=== PATIENT | male | born 1940 | race Caucasian/White ===

== ENCOUNTER 2019-08-27 12:09 | Observation (INO) | payer MEDICARE, BC ==
[2019-08-27 12:58] LABS: PTT 33.1 SEC (22.9-36.1); Prothrombin Time 13.5 SEC (12.0-14.7)
--- NOTE | 2019-08-27 13:39 | PDOC.FPRHP ---
- History of Present Illness Chief Complaint: Confusion, Left sided facial droop History of Present Illness: Patient is a 78 yo male with PMHx of HTN and HLD presented to the [place] ER earlier this morning with complaint of confusion. Patient says he was drinking coffee around 630-700AM this morning and does not remember anything until he arrived at [facility]. When prompted, he does remember that he arrived here via helicopter (around 1215PM). Patient's states that around 0700AM the patient called out to her that he was confused and "didn't feel like himself ". He was also on a phone call with his oldest daughter who also told the patient's that the patient was not making sense with conversation. Patient' s decided to take him to the [place] ER. Upon presentation there he was noted to have a left facial droop and prompted CVA workup. Left facial droop subsequently resolved after about an hour. CT head & CTA head/neck were both negative for any acute pathology. Currently patient states he still feels a little confused, but is able to answer questions appropriately. Does complain of a headache, described as similar to all of his past headaches which he has frequently. Denies any pain, dizziness, lightheadedness, nausea, heartburn, indigestion, back pain, myalgia, arthralgia. Of note, patient states that he was told he had a small mass in the front of his brain about 3 years ago. Was told no intervention needed at that time but that it was the cause of his headaches. Imaging completed with this admission have so far not seen a brain mass. ED Course: CT head negative for acute pathology, shows chronic ischemic changes. CTA head & neck both negative for any acute pathology. - Allergies/Adverse Reactions Allergies Allergy/AdvReac Type Severity Reaction Status Date / Time No Known Allergies Allergy Verified 08/27/19 13:44 - Home Medications Comments: Home med list: Gabapentin, Topiramate, Losartan, ASA 81, Vitamin D & E, Meloxicam, Zantac, APAP/Codeine 300-30 Patient's also says patient taking Lovastatin. Will need dosing. - History PMHx: HTN, HLD, Peripheral Neuropathy, history of brain tumor (not seen on current CT head) PSHx: appendectomy, left carpal tunnel, multiple skin care sites on face, cataracts (Aug 2018) Social: former smoker (quit 50 years ago), EtOH use <1x/week - Review of Systems ROS unobtainable: other (given by patient and his ) General: denies: fever/chills, weight/appetite/sleep changes, fatigue Eyes: denies: vision changes ENT: denies: nasal congestion Respiratory: denies: cough, congestion, shortness of breath Cardiovascular: denies: chest pain, edema Gastrointestinal: denies: nausea, abdominal pain Skin: denies: rashes, lesions Musculoskeletal: denies: pain, tenderness, arthritis/arthralgias Neurological: denies: numbness, syncope, seizure, weakness - Vital signs BP: 160/105 HR: 69 RR: 18 Tmax: 97.9F Pox: 97% on RA Wt: 64 kg - Physical Exam Constitutional: NAD, awake, alert and oriented, well developed HEENT: normocephalic and atraumatic, PERRLA, EOMI, conjunctiva clear, no scleral icterus, grossly normal vision, grossly normal hearing, MMM Neck: supple, FROM, no JVD Heart: RRR, normal S1/S2, no murmurs/rubs/gallops, pulses present, no edema Lungs: CTAB, no respiratory distress, good air movement, no rales/rhonchi, no wheezing Abdomen: soft, non-tender, bowel sounds present, no masses/distention Musculoskeletal: normal structure, normal tone, ROM grossly normal -Musculoskeletal: strength 5/5 in all extremities Neurological: no focal deficit, CN II-XII intact, normal sensation Skin: no rash/lesions, good turgor Heme/Lymphatic: no unusual bruising or bleeding Psychiatric: normal mood and affect -Psychiatric: intact remote, impaired memory regarding time from 0700 to 1200 today FMR H&P: Results - Radiology Interpretation CT scan - head Status: report reviewed by me (no acute patholoy, chronic ischemic changes) Other Status: report reviewed by me (CTA head & neck: no signs of stenosis, no acute pathology) FMR H&P: A/P - Problem List (1) TIA (transient ischemic attack) Current Visit: Yes Status: Acute Code(s): G45.9 - TRANSIENT CEREBRAL ISCHEMIC ATTACK, UNSPECIFIED (2) Hypertension Current Visit: Yes Status: Acute Code(s): I10 - ESSENTIAL (PRIMARY) HYPERTENSION Qualifiers: Hypertension type: unspecified Qualified Code(s): I10 - Essential (primary ) hypertension (3) Hyperlipidemia Current Visit: Yes Status: Acute Code(s): E78.5 - HYPERLIPIDEMIA, UNSPECIFIED Qualifiers: Hyperlipidemia type: unspecified Qualified Code(s): E78.5 - Hyperlipidemia , unspecified (4) Peripheral neuropathy Current Visit: Yes Status: Acute Code(s): G62.9 - POLYNEUROPATHY, UNSPECIFIED Qualifiers: Peripheral neuropathy type: polyneuropathy, unspecified Qualified Code(s): G62.9 - Polyneuropathy, unspecified - Plan Patient is a 78 yo male who presents with confusion and left facial droop is admitted for suspected TIA and further workup: #TIA, suspected -had normal CT head & CTA head/neck in [place] ED -originally presented with left sided droop which self-resolved after about 1 hour, no current deficits -patient currently alert and oriented x 4, answering questions appropriately -will order MRI head -Neuro checks q4hr -permissive HTN -order Echo -continue home med: ASA 81 -start Plavix -check lipids, TSH, A1C #HTN -permissive HTN d/t suspected TIA vs CVA -Hydralazine prn -will hold home Losartan for now #HLD -need to confirm home med Lovastatin -check lipid panel #Peripheral Neuropathy -sensation intact -continue home med: Gabapentin #Hx of Brain Mass -not seen on imaging with this admission -continue home med: Topiramate Diet: Regular VTE: SCDs Code: FULL Dispo: Stable, admitted to observation on stroke unit. Will continue to monitor with neuro checks q4h. Obtain MRI & Echo. Anticipate LOS <2 days. FMR H&P: Upper Level - Pertinent history 78 yo M w/concern of CVA as transfer from [place]. Hx from pt and . He was normal when he woke up this morning after about 1 hour he became confused with slight L sided facial droop. He presented to the [place] ED where symptoms began to improve and CT brain and CTA head/neck were negative. Due to presentation, he was sent to this facility for further work up. PMHx HTN Migraine GERD Peripheral neuropathy secondary to spinal stenosis No surgical hx Social No etoh, tobacco, drugs - Pertinent findings See security intern note for full ROS, PE, vitals, and labs ROS General denies fever or chills CV Denies CP, palpitation, or chronic peripheral edema Resp Denies SOB or cough GI denies n/v/d/c or abdominal pain denies increased frequency or dysuria Neuro Complains of confusion and L sided facial droop. Denies numbness, weakness , changes in vision, slurred speech. PE General A&O x4, NAD HEENT NCAT CV RRR, no murmur Resp CTA, no respiratory distress Abd non tender, no distension, normal BS Extremities no edema, equal pedal pulses Neuro No slurred speech, CN II-XII intact, no peripheral weakness or numbness. - Plan Date/Time: 08/27/19 1538 I, Cipriano Lovelace DO, have evaluated this patient and agree with findings/plan as outlined by security intern resident. Pertinent changes/additions are listed here. 1.CVA vs TIA -CTA head/neck is normal. Order MRI brain, TSH, Lipids, A1c, and echo -Admit to stroke -Start Lipitor and ASA -PT/ST/OT eval 2.HTN -Home meds 3.Migraine -Home meds PPx SCD Diet NPO until speech eval Code Full
[2019-08-27] MEDS ORDERED: Senokot S 8.6-50 MG TAB PO PRN (15:08)
[2019-08-27] MEDS ORDERED: Acetaminophen 325 MG TAB PO PRN (15:08)
[2019-08-27] MEDS ORDERED: hydrALAZINE 20 MG/ML VIAL SLOW IVP PRN (15:08)
[2019-08-27] MEDS ORDERED: Calcium Carbonate 500 MG ChewTAB PO PRN (15:08)
[2019-08-27] MEDS ORDERED: Ondansetron PF 4 MG/2 ML Vial IVP PRN (15:08)
[2019-08-27] MEDS ORDERED: Ondansetron ODT 4 MG TAB PO PRN (15:08)
[2019-08-27] MEDS ORDERED: hydrOXYzine 25 MG TAB PO PRN (16:59)
[2019-08-27] MEDS ORDERED: hydrOXYzine 25 MG TAB PO SCH (17:00)
[2019-08-27 17:04] VITALS: BMI 21.9
[2019-08-27] MEDS: diphenhydrAMINE 50 MG/ML VIAL IVP PRN ×2 (19:07→23:58)
[2019-08-27] MEDS ORDERED: Lactated Ringer's 1,000 ML IV SCH (20:45)
[2019-08-28] MEDS: diphenhydrAMINE 50 MG/ML VIAL IVP PRN (04:25)
[2019-08-28 06:00] LABS: #Eosinphils 0.3 thou/uL (0.0-0.7); #Lymphocytes 1.7 thou/uL (1.20-3.40); #Monocytes 0.3 thou/uL (0.11-0.59); #Neutrophils 6.7 thou/uL (1.40-6.50); %Basophils 0.3 % (0.0-1.0); %Eosinophils 2.8 % (0.0-10.0); %Lymphocytes 19.1 % (21.0-51.0); %Monocytes 3.4 % (0.0-10.0); %Neutrophils 74.3 % (42.0-75.0); Hemoglobin 15.2 g/dL (14.0-18.0); Mean Corpuscular HGB CONC 34.5 g/dL (32.0-36.0); Mean Corpuscular Hemoglobin 31.9 pg (27.0-31.0); Mean Corpuscular Volume 92.3 fL (78.0-98.0); Mean Platelet Volume 7.3 fL (7.4-10.4); Platelet Count 406 thou/uL (130-400); RBC Distribution Width 12.7 % (11.5-14.5); Red Blood Cell (RBC) Count 4.76 mill/uL (4.70-6.10)
[2019-08-28 06:14] LABS: ALT (SGPT) 18 U/L (8-55); AST (SGOT) 14 U/L (5-34); Albumin 3.6 g/dL (3.4-4.8); Alkaline Phosphatase 32 U/L (40-110); Anion Gap 9 mmol/L (10-20); BUN (Urea Nitrogen) 27 mg/dL (8.4-25.7); Bilirubin, Total 0.8 mg/dL (0.2-1.2); Calc. Creatinine Clearance 44 mL/min (70-130); Calcium 8.9 mg/dL (7.8-10.44); Carbon Dioxide 26 mmol/L (23-31); Cardiac Risk 4.1 (Less than 4.5); Chloride 107 mmol/L (98-107); Cholesterol 118 mg/dl (< 200 Desired); Estimated GFR-MDRD 51; Globulin 2.2 g/dL (2.4-3.5); Glucose 99 mg/dL (83-110); HDL Cholesterol 29 mg/dL (>60 Neg Risk); LDL Cholesterol, Calculated 69 mg/dL; Potassium 4.1 mmol/L (3.5-5.1); Protein, Total 5.8 g/dL (5.8-8.1); Sodium 138 mmol/L (136-145); Triglycerides 102 mg/dL (Less than 150)
[2019-08-28] MEDS ORDERED: Lorazepam 1 MG TAB PO SCH (08:00)
--- NOTE | 2019-08-28 08:41 | MRI ---
Brain MRI without contrast: 08/28/2019 COMPARISON: None HISTORY: Stroke protocol, sudden change in mental status with disorientation TECHNIQUE: Multiplanar multisequence MR imaging of the brain is obtained without contrast FINDINGS: The diffusion weighted imaging demonstrates no evidence for acute infarction. The axial gradient echo imaging demonstrates no evidence for intracranial hemorrhage. The imaged paranasal sinuses and mastoid air cells are well aerated. Arterial flow voids at the axial level of the skull base appear unremarkable on the T2-weighted imagi ng. The regional bone marrow signal intensity appears within normal limits. There is moderate degenerative change at the atlantoaxial interspace. There are multiple subcentimeter foci of increased T2 and FLAIR signal within the periventricular, de ep, and subcortical white matter, evidence of small vessel disease. There is no midline shift or mass effect. No ventricular enlargement is noted. Within the medial anterior right frontal region there is an 8 mm oval extra-axial mass demonstrating T1 and T2 isointensity, likely on the basis of a small meningioma. IMPRESSION: No MR evidence for acute infarction or intracranial hemorrhage. Probable subcentimeter ri ght frontal meningioma, incompletely evaluated on noncontrast enhanced imaging.
[2019-08-28] MEDS ORDERED: Clopidogrel Bisulfate 75 MG TAB PO SCH (09:00)
[2019-08-28] MEDS ORDERED: Aspirin 81 mg Enteric Coated Tablet PO SCH (09:00)
--- NOTE | 2019-08-28 09:05 | PDOC.FM ---
- Subjective Subjective: Pt reportedly doing well by pt and . Facial droop and confusion have completely resolved. Pt denies weakness, difficulty with walking, difficulty swallowing, or slurred speech. He reports good sleep. Nursing staff does report itchy rash and lip swelling after IV contrast yesterday- treated with benadryl overnight and resolved this morning. Pt ambulating to bathroom on his own without difficulty. - Objective MAR Reviewed: Yes Vital Signs & Weight: Vital Signs (12 hours) Temp Pulse Resp BP Pulse Ox 08/28/19 07:57 97.5 F L 66 16 126/76 95 08/28/19 06:48 94 L 08/28/19 03:30 97.5 F L 65 16 148/71 H 94 L 08/27/19 23:31 97.9 F 61 16 126/60 96 Weight Weight 69.536 kg I&O: 08/27/19 08/28/19 08/29/19 06:59 06:59 06:59 Intake Total 240 Balance 240 Result Diagrams: 08/28/19 05:21 08/28/19 05:21 Phys Exam - Physical Examination Constitutional: NAD HEENT: moist MMs, oral pharynx no lesions no lip swelling Respiratory: no wheezing, no rales, clear to auscultation bilateral Cardiovascular: RRR, no significant murmur Gastrointestinal: soft, non-tender, no distention, positive bowel sounds Musculoskeletal: no edema, pulses present Neurological: non-focal, normal sensation, moves all 4 limbs no facial droop or slurred speech Psychiatric: normal affect, A&O x 3 Skin: no rash Dx/Plan (1) TIA (transient ischemic attack) Code(s): G45.9 - TRANSIENT CEREBRAL ISCHEMIC ATTACK, UNSPECIFIED Status: Acute (2) Brain mass Code(s): G93.89 - OTHER SPECIFIED DISORDERS OF BRAIN Status: Chronic (3) Hyperlipidemia Code(s): E78.5 - HYPERLIPIDEMIA, UNSPECIFIED Status: Chronic Qualifiers: Hyperlipidemia type: unspecified Qualified Code(s): E78.5 - Hyperlipidemia , unspecified (4) Hypertension Code(s): I10 - ESSENTIAL (PRIMARY) HYPERTENSION Status: Chronic Qualifiers: Hypertension type: unspecified Qualified Code(s): I10 - Essential (primary ) hypertension (5) Peripheral neuropathy Code(s): G62.9 - POLYNEUROPATHY, UNSPECIFIED Status: Chronic Qualifiers: Peripheral neuropathy type: polyneuropathy, unspecified Qualified Code(s): G62.9 - Polyneuropathy, unspecified (6) Migraine Code(s): G43.909 - MIGRAINE, UNSP, NOT INTRACTABLE, WITHOUT STATUS MIGRAINOSUS Status: Chronic - Plan Plan: TIA: - sx completely resolved - CTA, CT, and MRI negative - echo pending - FLP at goal, pt to continue high dose statin - Discussed ABSD2 of 5 and high risk of bleeding with hx of ulcer requiring transfusion and chronic NSAID use with Dr. Mancia who recommends Aggrenox moving forward. Will f/u with pt outpt. 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 HTN: - elevated to allow permissive HTN, restart home meds today OLIVER vs CKD: - unsure of baseline - Cr. 1.3 - f/u outpatient HLD: - continue atorvastatin 80mg Brain Mass, likely meningioma: - has known hx, seen again on MRI, subcentimeter in size - no prior imaging to compare - request records and f/u outpt, likely no intervention needed with size Hx of Migraines - continue topamax Allergic reaction to IV Contrast - resolved Dispo: Likely d/c home today after echo read with outpt f/u in 1 wk. Addendum - Attending - Attending Attestation Date/Time: 08/28/19 3729 I personally evaluated the patient and discussed the management with Dr. Bailey I agree with the History, Examination, Assessment and Plan documented above with any addition or exceptions noted below. TIA. Imaging reviewed. Discuss medical management with neuro. Recommend Aggrenox due to failed ASA. Needs outpatient follow up with Cards for event monitor in order to monitor for A fib. Trevor
[2019-08-28] MEDS ORDERED: Famotidine 20 MG TAB PO SCH ×3 (11:15→21:00)
[2019-08-28 12:47] VITALS: BP 163/75; TEMP 98.5
[2019-08-28] MEDS ORDERED: Gabapentin 300 MG CAP PO SCH (15:00)
[2019-08-28] MEDS ORDERED: Topiramate 25 MG TAB PO SCH (21:00)
[2019-08-28] MEDS ORDERED: Losartan 25 MG TAB PO SCH (21:00)
[2019-08-28] MEDS ORDERED: Aggrenox 200-25mg CAP PO SCH (21:00)
[2019-08-29] MEDS ORDERED: Meloxicam 15 MG TAB PO SCH (09:00)
[2019-08-29] MEDS ORDERED: Aspirin 81 mg Enteric Coated Tablet PO SCH (09:00)
== END 2019-08-28 13:51 | disposition home or self-care (01) ==
LOC: ERS 12:09 → 2SE 12:55 → INTOOBSV 12:55
PROVIDERS: ADMIT Family Medicine; ATTEND Family Medicine
DX: G45.9 Transient cerebral ischemic attack, unspecified (principal); I10 Essential (primary) hypertension; E78.5 Hyperlipidemia, unspecified; D49.6 Neoplasm of unspecified behavior of brain; M48.00 Spinal stenosis, site unspecified; G62.9 Polyneuropathy, unspecified; G40.909 Epilepsy, unspecified, not intractable, without status epilepticus; Z87.891 Personal history of nicotine dependence; Z79.1 Long term (current) use of non-steroidal anti-inflammatories (NSAID); Z79.82 Long term (current) use of aspirin; Z79.899 Other long term (current) drug therapy; Z91.041 Radiographic dye allergy status
CPT/HCPCS: 70551; 80061; 83036; 85610; 85730; 93306; 96361 ×2; 96374; 96375; 96376 ×2; 99285; G0378 ×3; 36415; 80053; 84443; 85025; J1200; J2405; J7120

== ENCOUNTER 2022-12-21 09:34 | Outpatient (CLI) | payer MEDICARE, BC ==
[2022-12-21 10:47] LABS: Bilirubin Neg (Negative); Blood, Urine Negative (Negative); Clarity Clear (Clear); Glucose, Urine (Dipstick) Normal (Negative); Ketone, Urine Negative (Negative); Leukocyte 25 (Negative); Nitrite Negative (Negative); Protein, Urine (Dipstick) Negative (Neg-Trace); Urobilinogen Normal mg/dL (Less than 2)
[2022-12-21 10:49] LABS: Hemoglobin 15.9 g/dL (13.5-17.5); Mean Corpuscular HGB CONC 34.3 g/dL (32.0-36.0); Mean Corpuscular Hemoglobin 31.3 pg (27.0-33.0); Mean Corpuscular Volume 91.3 fl (81.2-95.1); Mean Platelet Volume 10.2 fl (7.4-10.4); Platelet Count 401 10x3/uL (150-450); RBC Distribution Width 13.9 % (11.5-14.5); Red Blood Cell (RBC) Count 5.08 10x6/uL (4.32-5.72); White Blood Cell (WBC) Count 7.7 10x3/uL (3.5-10.5)
[2022-12-21 10:57] LABS: Bacteria/HPF Rare-Few HPF (None Seen); RBC/HPF 0-3 HPF (0-3); Squamous Epithelial 0-3 HPF (0-3); WBC/HPF 0-3 HPF (0-3)
[2022-12-21 11:06] LABS: Anion Gap 14 mmol/L (10-20); BUN (Urea Nitrogen) 24 mg/dL (8.4-25.7); Calc. Creatinine Clearance 0 mL/min (70-130); Calcium 9.9 mg/dL (7.8-10.44); Carbon Dioxide 27 mmol/L (23-31); Chloride 105 mmol/L (98-107); Estimated GFR 43; Glucose 79 mg/dL (83-110); Potassium 4.8 mmol/L (3.5-5.1); Sodium 141 mmol/L (136-145)
[2022-12-21 11:07] LABS: PTT 28.8 sec (22.0-33.0); Prothrombin Time 10.9 sec (9.5-12.1)
== END 2022-12-21 09:35 | disposition home or self-care (01) ==
LOC: LABBT 09:34
PROVIDERS: ATTEND Urology
DX: Z01.818 Encounter for other preprocedural examination (principal); N32.89 Other specified disorders of bladder; N28.89 Other specified disorders of kidney and ureter; N40.1 Benign prostatic hyperplasia with lower urinary tract symptoms; R39.12 Poor urinary stream; R31.0 Gross hematuria; R33.8 Other retention of urine
CPT/HCPCS: 80048; 81001; 85027; 85610; 85730; 87086; 93005; 93010

== ENCOUNTER 2022-12-30 05:41 | Day surgery (SDC) | payer MEDICARE ==
[2022-12-29 13:00] VITALS: BMI 21.5
[2022-12-30] MEDS ORDERED: Fentanyl 100 MCG/2 ML VIAL ONE (07:20)
[2022-12-30] MEDS ORDERED: Levofloxacin 500 mg/D5W 100 ml Premix Bag ONE (07:29)
[2022-12-30] MEDS ORDERED: Lidocaine 1% PF 5 ML VIAL ONE (07:50)
[2022-12-30] MEDS ORDERED: PROPOFOL 200 MG/20 ML VIAL ONE (07:50)
[2022-12-30] MEDS ORDERED: ePHEDrine 50 MG/ML VIAL ONE (07:50)
[2022-12-30] MEDS ORDERED: Fentanyl 250 MCG/5 ML VIAL ONE (09:32)
[2022-12-30] MEDS ORDERED: Phenazopyridine HCl 100 MG TAB ONE (09:41)
[2022-12-30] MEDS ORDERED: Oxybutynin 5 MG TAB ONE (09:41)
== END 2022-12-30 13:36 | disposition home or self-care (01) ==
LOC: SDC 05:41
PROVIDERS: ATTEND Urology
PROC: 0VT08ZZ Resection of Prostate, Via Natural or Artificial Opening Endoscopic (ICD-10-PCS; principal; 2022-12-30)
DX: N40.1 Benign prostatic hyperplasia with lower urinary tract symptoms (principal); N13.8 Other obstructive and reflux uropathy; I10 Essential (primary) hypertension; E78.5 Hyperlipidemia, unspecified; Z86.73 Personal history of transient ischemic attack (TIA), and cerebral infarction without residual deficits; Z79.82 Long term (current) use of aspirin; Z79.899 Other long term (current) drug therapy
CPT/HCPCS: 88305; J1956; J2704; J3010; J3490

== ENCOUNTER 2023-04-20 10:14 | Outpatient (CLI) | payer MEDICARE ==
[~2023-04-20 10:14] MED LIST: Iopamidol 370 76% 100 ML VIAL ONE
== END 2023-04-20 10:15 | disposition home or self-care (01) ==
LOC: BICCT 10:14
PROVIDERS: ATTEND Urology
DX: N28.89 Other specified disorders of kidney and ureter (principal)
CPT/HCPCS: 74160; 82565; Q9967

== ENCOUNTER 2024-04-20 09:36 | Outpatient (CLI) | payer MEDICARE ==
[2024-04-20] MEDS ORDERED: Magnevist 469MG/ML 20 ML VIAL ONE (11:10)
== END 2024-04-20 09:37 | disposition home or self-care (01) ==
LOC: MRI 09:36
PROVIDERS: ATTEND Urology
DX: N28.89 Other specified disorders of kidney and ureter (principal)
CPT/HCPCS: 74183; 82565; A9579